=== PATIENT | male | born 1945 | race Caucasian/White ===

== ENCOUNTER 2016-09-28 11:48 | Day surgery (SDC) | payer OTHER ==
[2016-09-27 14:59] VITALS: BMI 29.2
[2016-09-28] MEDS ORDERED: PROPOFOL 20 ML ONE (13:30)
[2016-09-28] MEDS ORDERED: ceFAZolin SODIUM 1 GM VIAL ONE (13:30)
[2016-09-28] MEDS ORDERED: MIDAZOLAM HCL 2 MG/2 ML SINGLE DOSE VIAL ONE (13:31)
[2016-09-28] MEDS ORDERED: ceFAZolin SODIUM 1 GM VIAL IVPB ONE (13:49)
[2016-09-28] MEDS ORDERED: ACETAMINOPHEN 325 MG TABLET (FP) PO PRN (15:26)
[2016-09-28] MEDS ORDERED: oxyCODONE HCL 5 MG TABLET PO PRN (15:26)
[2016-09-28] MEDS ORDERED: ONDANSETRON 4 MG/2 ML VIAL IVPUSH PRN (15:26)
[2016-09-28] MEDS ORDERED: LACTATED RINGERS SOLUTION 1,000 ML IV SCH (15:30)
[2016-09-28] MEDS ORDERED: DEXTROSE 5%-0.45% SALINE 1,000 ML IV SCH (15:30)
--- NOTE | 2016-09-28 15:30 | OP ---
Operative Note - Note: Operative Date: 09/28/16 Pre-Operative Diagnosis: BPH and hematuria Operation: Cysto TUVP Findings: Very large obstructive prostate bleeding prostatic varices and multiple prostatic abscess Post-Operative Diagnosis: Same as Pre-op Anesthesia: Spinal Specimens Removed: Prostate tissue Estimated Blood Loss (mls): 50 Drains & Tubes with Location: 24 F 30cc Balloon Turpin
[2016-09-28] MEDS ORDERED: DOXYLAMINE 25 MG PO SCH (22:00)
[2016-09-28] MEDS: CEFAZOLIN (PRE-DOCKED) 50 ML IVPB SCH (22:00)
[2016-09-28] MEDS: ALPRAZolam 0.25 MG TABLET PO ONE (23:02)
[2016-09-29] MEDS: CEFAZOLIN (PRE-DOCKED) 50 ML IVPB SCH ×2 (01:57→10:17)
[2016-09-29 06:36] VITALS: BP 140/84; PULSE 65; TEMP 99.2
[2016-09-29] MEDS: ALPRAZolam 0.25 MG TABLET PO ONE (07:23)
--- NOTE | 2016-09-29 12:59 | OP ---
DATE OF OPERATION: 09/28/2016 SURGEON: Jack Foote MD ANESTHESIA: Spinal. PREOPERATIVE DIAGNOSIS: Gross hematuria, benign prostatic hypertrophy. POSTOPERATIVE DIAGNOSIS: Gross hematuria, benign prostatic hypertrophy. PROCEDURE: Cystoscopy, fulguration, and resection of prostatic urethra and pros. FINDINGS: Severe bleeding encountered throughout the prostatic urethra. Multiple active bleeding points noted near the verumontanum. Bladder neck showed severe inflammatory polyps and bleeding. The prostatic urethra is about 6-7 cm in length. Bladder shows severe trabeculation. Both ureteral orifices were found to be well away. Rest of the bladder was within normal limits. DESCRIPTION OF PROCEDURE: Patient in lithotomy position under anesthesia, was prepped and draped in the usual manner. Using 26 resectoscope, cystoscopy was performed and resection of the bladder neck and the prostate carried out. Multiple areas were fulgurated. Multiple small yellow stones noted throughout the prostatic urethra and the bladder. They were removed using . A good channel was noted at the end of the procedure. All the bleeding points were electrocoagulated. Patient tolerated the procedure well. A 24 Turpin was left indwelling and left the operating room in satisfactory condition. Anthony CLARK/[id number]
--- NOTE | 2016-10-04 11:19 | PATH ---
Surgical Pathology Report Patient Name: [facility]. Rec. #: [id number] /Age/Gender: 1945 (Age: 71) / M Account: [id number] Location: [facility] Taken: 09/28/2016 Received: 09/29/2016 Reported: 10/02/2016 Physicians: Missy Paniagua M.D. Specimen(s) Received PROSTATE CHIPS Clinical History BPH, hematuria Final Diagnosis PROSTATE, TUR: BENIGN PROSTATIC HYPERPLASIA WITH AREAS OF ATROPHY. Electronically Signed Brendon Hyde M.D. Gross Description Received in formalin labeled "prostate tissue," is a 5 g, 6.0 x 5.5 x 0.5 cm aggregate of multiple dan, irregular, firm to rubbery portions of tissue, consistent with prostate tissue. The specimen is entirely submitted in 8 cassettes. /09/29/2016 saudi09/29/2016
== END 2016-09-29 13:20 | disposition home or self-care (01) ==
LOC: JASU-SURG 11:48 → J8W 17:10 → JASU-SURG 09-29 13:20
PROVIDERS: ATTEND Urology
PROC: 0VB08ZZ Excision of Prostate, Via Natural or Artificial Opening Endoscopic (ICD-10-PCS; principal; 2016-09-28 13:30)
DX: N40.1 Benign prostatic hyperplasia with lower urinary tract symptoms (principal); R31.0 Gross hematuria
CPT/HCPCS: 88305-TC; 94760